=== PATIENT | male | born 1945 | race Caucasian/White ===

== ENCOUNTER 2022-10-04 10:18 | Day surgery (SDC) | payer BC, OTHER ==
[2022-10-04 08:18] LABS: Lymphocytes % 21.9 % (15.3-44.8); MCV 89.3 fL (80-100); MPV 8.4 fL (7.6-11.3); RBC Red Blood Cell Count 4.47 M/uL (4.33-5.43)
--- NOTE | 2022-10-04 08:24 | RAD REPORT ---
EXAM DESCRIPTION: RAD - Chest Pa And Lat (2 Views) - 10/04/2022 8:13 am CLINICAL HISTORY: Pre op pending hernia repair . Hypertension COMPARISON: No comparisons TECHNIQUE: PA and lateral views of the chest were obtained. FINDINGS: The lungs are clear. Heart size is normal and central vasculature is within normal limits. No pleural effusion or pneumothorax seen. No acute bony finding noted. IMPRESSION: No acute cardiopulmonary process.
[2022-10-04 08:34] LABS: Potassium 3.7 mEq/L (3.5-5.1)
[2022-10-04] MEDS ORDERED: Ringers Lactate 1,000 ML IV ONE (10:56)
[2022-10-04] MEDS ORDERED: CEFAZOLIN SODIUM 1 GM/VIAL ONE (10:56)
[2022-10-04 11:11] VITALS: TEMP 97.1
[2022-10-04] MEDS ORDERED: FENTANYL CITR 100 MCG/2 ML ONE (11:57)
[2022-10-04] MEDS ORDERED: propofoL 200 MG/20 ML VIAL IV ONE (11:58)
[2022-10-04] MEDS ORDERED: MIDAZOLAM HCL 2 MG/2 ML INJ ONE (11:58)
[2022-10-04] MEDS ORDERED: ROCURONIUM 50 MG/5 ML VIAL IV ONE (11:58)
[2022-10-04] MEDS ORDERED: LIDOCAINE 2% MPF 5 ML VIAL ONE (11:58)
[2022-10-04] MEDS ORDERED: ONDANSETRON 4 MG/2 ML VIAL ONE (11:58)
--- NOTE | 2022-10-04 14:00 | P.BOP ---
Preoperative diagnosis: tender left inguinal hernia Postoperative diagnosis: same Primary procedure: Laparoscopic repair of tender left inguinal hernia with mesh Press Pipe Inspector: Jacque Chapa) Estimated blood loss: <10cc Specimen: none Findings: as above Anesthesia: General Complications: None Implants: medium 3D Transferred to: Recovery Room Condition: Good
[2022-10-04] MEDS ORDERED: Mastisol Adhesive Liq ONE (14:08)
[2022-10-04] MEDS ORDERED: KETOROLAC 30 MG/ML INJ ONE (14:12)
[2022-10-04] MEDS: MEPERIDINE HCL 25 MG/ML SYR ONE ×2 (14:25→14:45)
[2022-10-04 14:57] VITALS: O2SAT 95
[2022-10-04] MEDS ORDERED: CODEINE 30MG/APAP 300MG TAB ONE (15:22)
[2022-10-04] MEDS ORDERED: TAMSULOSIN 0.4 MG SR CAP ONE (16:14)
[2022-10-04 16:32] VITALS: BP 118/65
--- NOTE | 2022-10-06 12:36 | EKG ---
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
== END 2022-10-04 16:15 | disposition home or self-care (01) ==
LOC: OR 10:18
PROVIDERS: ATTEND Surgery
PROC: 0YU64JZ Supplement Left Inguinal Region with Synthetic Substitute, Percutaneous Endoscopic Approach (ICD-10-PCS; principal; 2022-10-04 12:45)
DX: K40.90 Unilateral inguinal hernia, without obstruction or gangrene, not specified as recurrent (principal)
CPT/HCPCS: 93005; 85025; 80048; 36415; 71046; 49650; J2704; J2001; J2250; J3010; J2175; J2405; J7120; J0690